=== PATIENT | male | born 1945 | race Caucasian/White ===

== ENCOUNTER 2020-08-23 16:52 | Inpatient (IN) | payer MEDICARE, SELFPAY ==
[2020-08-23] VITALS (27 sets, daily range): BP systolic 115–143; BP diastolic 60–79; PULSE 47–65; RESP 5–18; TEMP 36.4–36.6; O2SAT 93–100; BMI 30.3
--- NOTE | 2020-08-23 16:59 | ED_ITS ---
HPI - Chest Pain General: Chief Complaint: Chest Pain Stated Complaint: STEMI Time Seen by Provider: 08/23/20 16:58 History of Present Illness: HPI narrative: The patient is a 74-year-old male who comes to the ER by helicopter with a STEMI. They called 13 minutes prior to arrival and we notified overhead immediately that a STEMI alert and called Dr. Khanna. Their EKG shows ST elevations in 2 3 and aVF with reciprocal depressions. Ground crew EMS gave 2 nitroglycerin which dropped his pressure and placed him on 100% oxygen. Helicopter crew gave him 50 of fentanyl which reduced his pain to a 0 in the chest and he complains of hip pain. On arrival to the ER he is slightly altered not answering all questions appropriately he has to be asked multiple times. He does complain of shoulder and right hip pain he says he has had his hips replaced. The patient has a history of cardiac disease with multiple stents in the past. He is followed in [place] at [facility] and is not currently a reliable historian. He does have slight ST elevation in 2, 3, and aVF on arrival. The patient thinks symptoms began approximately an hour ago though he has had to be asked 4 times before he would give an answer. MD complaint: chest pain Pertinent past history: coronary artery disease and prior NC Timing of current episode: constant Onset: during rest Pain location: left chest Severity: severe Relieving factors: nothing Associated symptoms: Deny abdominal pain, dyspnea or palpitations Review of Systems General: Reports: 10 or more systems reviewed and unremarkable except in HPI and below Const: Denies: fatigue Eyes: Denies: change in vision, blurry vision or eye redness ENMT: Denies: throat pain, swelling of lips/tongue, ear or mastoid pain or nasal congestion Card: Denies: chest pain, palpitations, irregular heart rhythm, edema, dyspnea on exertion or orthopnea Resp: Denies: dyspnea, productive cough or non-productive cough GI: Denies: abdominal pain, diarrhea or GI cramping : Denies: flank pain, urinary frequency or urinary urgency Musc: Denies: neck pain, back pain, extremity pain, joint pain, joint redness, limited range of motion or muscle weakness Skin/Breast: Denies: rash, pruritus, erythema, skin pain or skin tenderness Neuro: Denies: headache(s), numbness in extremities, weakness in extremities, sensory changes, difficulty walking, dizziness, confusion or Slurred speech present Psych: Denies: anxiety or depression Endo: Denies: polyuria All/Imm: Denies: urticaria, throat swelling or tongue swelling Physical Exam Const: COMMON NORMALS: patient oriented x3 and alert EXAM LIMITATIONS: altered mental status GENERAL APPEARANCE: anxious and ill appearing ORIENTATION/CONSCIOUSNESS: Yes oriented to person, Yes oriented to place and Yes oriented to time OTHER: Has slightly altered mental status. Has to be asked questions multiple times for answers HENMT: COMMON NORMALS: normocephalic, external ears normal and Normal external nose present HEAD & SCALP: normal to inspection and normocephalic NOSE: Normal external nose present EXTERNAL EAR: Yes external ears normal MOUTH: Normal oral and palatal mucosa present THROAT: posterior oropharynx normal Eye: COMMON NORMALS: Equal, round and reactive pupils present and EOMs intact bilaterally GENERAL EYE: appearance normal, both eyes and all related structures PUPIL: Yes Equal, round and reactive pupils present Neck/C-Spine: COMMON NORMALS: full ROM, no lymphadenopathy, no meningeal signs and no JVD GENERAL: Yes normal visual inspection Lymph: LYMPHATIC: no lymphadenopathy noted Chest: COMMONS NORMALS: normal inspection of the chest and normal palpation of entire chest wall Resp: COMMON NORMALS: normal respiratory effort, No retractions, No use of accessory muscles, clear to auscultation bilaterally and percussion normal EFFORT & INSPECTION: Yes able to speak in complete sentences AUSCULTATION: clear to auscultation bilaterally PERCUSSION: percussion normal Cardio: COMMON NORMALS: no JVD, regular rate, regular rhythm, S1 normal heart sound present, S2 normal heart sound present and Peripheral pulses 2+ throughout RATE: regular rate RHYTHM: regular rhythm HEART SOUNDS: S1 normal heart sound present and S2 normal heart sound present PERIPHERAL PULSES: Peripheral pulses 2+ throughout GI: COMMON NORMALS: Normal to inspection, nondistended, normoactive bowel sounds present, Soft to palpation, non-tender and no masses INSPECTION: Yes normal to inspection PALPATION: Yes Soft to palpation : COMMON NORMALS: Yes no CVA tenderness BLADDER/KIDNEY EXAM: Yes no CVA tenderness Back/Pelvis: COMMON NORMALS: no CVA tenderness, thoracic and lumbar spine normal to inspection, no thoracic nor lumbar tenderness and thoraco-lumbar ROM normal Extremity: COMMON NORMALS: normal to inspection, full ROM, capillary refill normal, no joint enlargement and no pedal edema GENERAL: Yes normal exam except as noted Neuro: WEI COMA SCALE: document GCS findings [place] coma scale eye opening: Spontaneous Wei coma scale verbal response: Confused Wei coma scale motor response: Obey commands Wei coma scale total score: 14 COMMON NORMALS: patient oriented x3, CN's II-XII intact bilaterally, moves all ex tremities, no focal motor deficits, no sensory deficits noted and gait normal SENSORIUM/ORIENTATION: Yes alert, Yes oriented to person, Yes oriented to place and Yes oriented to time MENINGEAL SIGNS: Yes no meningeal signs Skin: COMMON NORMALS: no rashes or lesions noted GENERAL SKIN EXAM: no rashes or lesions noted Course Vital Signs: Vital signs: Vital Signs Temperature 97.8 F 08/23/20 17:10 Pulse Rate 65 08/23/20 17:10 Respiratory Rate 18 08/23/20 17:10 Blood Pressure 132/75 08/23/20 17:10 Pulse Oximetry 100 08/23/20 17:10 MDM - Chest Pain MDM Narrative: Medical decision making narrative: Seen by Dr. Khanna in the ED who ordered Plavix, heparin, and saline. The patient was quickly shipped to the [facility] in stable condition. Lab Data: Labs: Lab Results 08/23/20 Range/Units 17:00 WBC 7.9 (4.0-10.0) 10^3/ uL RBC 4.45 (4.1-5.3) 10^6/u L Hgb 13.0 (11.7-16.6) g/dL Hct 40.1 L (42.0-52.0) % MCV 90.1 (80-94) fL MCH 29.2 (28.0-34.0) pg MCHC 32.4 (30.0-36.0) g/dL RDW 11.8 L (12.1-15.1) % Plt Count 236 (130-400) 10^3/c mm MPV 10.3 (7.4-10.4) fL Neut % (Auto) 66.2 % Lymph % (Auto) 23.4 % Harper % (Auto) 7.5 % Eos % (Auto) 2.2 % Baso % (Auto) 0.3 % Neut # (Auto) 5.23 (1.8-7.7) 10^3/u L Lymph # (Auto) 1.8 (0.8-4.8) 10^3/u L Harper # (Auto) 0.6 (0.2-0.9) 10^3/u L Eos # (Auto) 0.2 (0.0-0.8) 10^3/u L Baso # (Auto) 0.0 (0.0-0.1) 10^3/u L Nucleated RBC % (a uto) 0 % Nucleated RBCs # 0.0 /100WBC Discharge Plan Discharge Patient Disposition: Admitted As Inpatient Clinical Impression: ST elevation myocardial infarction (STEMI) Condition: Stable Coding Level of Care Code ED Landscape Drafter for Rolando Fwd Exam Comprehensive
--- NOTE | 2020-08-23 17:00 | XACV_ITS ---
Ht: 185 cm Wt: 104 kg BSA: 2.34 m2 Gender: Male : 1945 Any Known Allergies: No known allergies Exam Priority: Routine Procedure(s): Procedure Description: Diagnostic procedure Procedure Description: PCI procedure Procedure Description: Drug Eluting Coronary Stent Procedure Description: PTCA Procedure Description: Coronary Thrombectomy Procedure Description: Miscellaneous Procedure Description: ACT Procedure Description: Coronary Angiography Diagnostic Cath Status: Emergency Diagnostic Findings * LM has minor luminal irregularities. * Left circumflex artery gives rise to a large OM branch which is free of significant disease. Distal left circumflex artery has a chronic total occlusion with collateral filling. Distal left circumflex artery: Severe 100% stenosis, NUBIA: 0 flow. * pLAD to mLAD: Moderate 60% stenosis, NUBIA: 3 flow. * Proximal Right Coronary Artery to mRCA: Severe 100% stenosis, NUBIA: 0 flow. * Coronary angiography shows right dominance. PCI Status: Emergency PCI Indication: STEMI - Immediate PCI for STEMI Interventional Findings * Procedure detail: We engaged RCA using JR4 guide catheter. IV heparin was used to maintain an ACT above 250 seconds. A 0.014 run-through guidewire was used to cross the proximal to mid RCA stenosis. We predilated the stenosis with 2.5 x 8 mm semicompliant balloon. This was followed by manual aspiration thrombectomy. We then proceeded with placement of 3.5 x 22 mm resolute Evaristo drug-eluting stent. To the stent there was an area of haziness that looked suspicious for residual thrombus. We covered that with a 3.5 x 12 mm resolute Reform drug-eluting stent.. At this time final angiogram was performed that showed excellent stent expansion, no residual stenosis and NUBIA-3 flow. Guidewire and guide catheter were removed. We briefly attempted to cross the PERSONAL LINES INSURANCE AGENT of left circumflex artery after engaging the left main artery with a XB 3.5 guide catheter, however the wire could not cross the occluded segment. As it was a distal vessel and had good collaterals, we aborted further attempts at revascularization of this vessel. Angio-Seal was used to close right common femoral artery access site. Patient left the Document Control Assistant in a stable condition. * Proximal Right Coronary Artery to mRCA: 100% stenosis treated with AB TREK 2.50X8 RX BALLOON, MDT R EVARISTO 3.5X22 JOSE, and MDT R EVARISTO 3.5X12 JOSE. 0% residual stenosis, NUBIA: 3 flow. Conclusions 1. Thrombotic occlusion of proximal to mid 2. RCA (culprit vessel for STEMI). 3. Moderate proximal LAD stenosis. 4. 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 5. Proximal Right Coronary Artery to mRCA was treated with Balloon and two Drug Eluting Stent. Recommendations * Admit to CSU. * Aspirin and Plavix for atleast 1 year. * High intensity statin therapy. * Will recommend outpatient stress test to rule out ischemia in the LAD territory. If abnormal, should be revascularized. * Order echocardiogram. * Outpatient cardiology follow up. Interventional RX Recommendation: PCI w/o planned CABG Diagnostic RX Recommendation: PCI w/o planned CABG Anticoagulation: Heparin Pressures Phase:Rest AO : 147 / 73 ( 114 ) @ 12:22:00 PM 149 / 70 ( 102 ) @ 12:25:00 PM 102 / 59 ( 77 ) @ 12:40:00 PM 110 / 62 ( 80 ) @ 12:44:00 PM 98 / 65 ( 78 ) @ 12:49:00 PM 118 / 78 ( 98 ) @ 12:57:00 PM Clinical Evaluation EBL: 5mL-10mL Procedural Details Procedure Consent Obtained. Pre-Procedure Time Out. Identified patient by full name and date of as verbalized by the patient/guarantor. Does the consent match the physician's order: N/A Emergent. Accurate & Complete Informed Consent: N/A Emergent. Inpatient/Outpatient History & Physical on Chart: N/A Emergent. If H&P is completed, is and addenduem needed: N/A Emergent; If yes, is the addendum complete: N/A. Visualize and Verify Site with Patient/Guarantor: N/A. Relevant Radiology Images available: N/A. Pre-op teaching completed and patient verbalized understanding. The risks, benefits, and alternatives of sedation and/or procedure were discussed by physician. The patient agrees to continue. Procedure started. Document Control Assistant Indications: ACS <= 24 hours. Chest Pain Symptom Assessment: Typical Angina Symptoms. Cardiovascular Instability: No. Correct patient, site and procedure confirmed by cath team. Baseline sample Acquired. HR: 138 BPM. Physician arrived. Equipment: 6F - Femoral. Cardiac Cath Pack. ACIST Manifold Kit Model BT 2000. Heparinized Saline (2 units/mL), 1000 mL bag. Kit, Micropuncture. Physician scrubbed in. Immediate Pre-Procedure Time Out. Correct Patient: Yes; Correct Procedure: Yes; Correct Site: Yes; Correct Patient Position: Yes; Correct Supplies: Yes; Dried Flammable Prep: Yes; Blood Products Available: N/A;. AP pads applied to patient. Lidocaine 1% infiltrated to the right groin. PERRLA. Strong, equal hand water supply engineer bilaterally. Lungs clear x 5 lobes. IV Site on Arrival: 18 gauge in the right forearm. IV Fluids: 0.9% NaCl at KVO. 0 mL infused prior to stores laborer. Oxygen started at 2liters/min via nasal canula. bilateral groins was prepped with chloroprep then draped in the usual sterile fashion. Arterial access obtained with micropuncture set. A 5 british JL4 catheter in over wire. Catheter out. Inventory is CRD 6FR JR 4 GUIDE 100cm. Inventory is CRD 6 FR XB 3.5 GUIDE. 6 british JR 4 guide catheter was inserted over the wire. Runthrough guidewire was advanced through the guide catheter to lesion in the prox RCA. Inflation number : 1 A AB TREK 2.50X8 RX BALLOON was prepped and advanced across the Prox RCA , then inflated to 12 YASHIRA for 0:19 seconds. Inflation number: 2 The AB TREK 2.50X8 RX BALLOON was reinflated across the Prox RCA, to 12 YASHIRA for 0:18 seconds. Balloon out. Pronto V4 extraction catheter inserted. Thrombectomy performed. Pronto catheter removed. Pronto V4 extraction catheter inserted. Pronto catheter removed. Inflation number: 3 The AB TREK 2.50X8 RX BALLOON was reinflated across the Prox RCA, to 12 YASHIRA for 0:06 seconds. Inflation number: 4 The AB TREK 2.50X8 RX BALLOON was reinflated across the Prox RCA, to 12 YASHIRA for 0:08 seconds. Inflation number: 5 The AB TREK 2.50X8 RX BALLOON was reinflated across the Prox RCA, to 12 YASHIRA for 0:12 seconds. Balloon out. Inflation Number : 6 A MDT R EVARISTO 3.5X22 JOSE -Lot Number# [id number] exp date 06/03/2021 was prepped and advanced across the Prox RCA. The stent was deployed at 12 YASHIRA for 0:29 seconds. Stent balloon out over wire. Inflation Number : 7 A MDT R EVARISTO 3.5X12 JOSE -Lot Number# [id number] exp date 04/04/2022 was prepped and advanced across the Prox RCA. The stent was deployed at 12 YASHIRA for 0:23 seconds. Stent balloon out over wire. Results checked. Wire out. Guide catheter out. 6 british XB 3.5 guide catheter was inserted over the wire. Runthrough guidewire was advanced through the guide catheter to lesion in the mid Circ. Unable to cross lesion, guidewire removed. Guide catheter out. Hand injection to check sheath placement. A Angio-Seal VIP (St. Oneal) was successful obtaining hemostatsis at the Right Femoral artery insertion site. Lot #[id number]. Post Procedure: Pulses reassessed and unchanged. PERRLA. Strong, equal hand water supply engineer bilaterally. ACT drawn. Results 232 seconds. Therapeutic limits - pre-heparin administration 90-150 seconds and monitoring heparin during a vascular procedure >250 seconds. Physician scrubbed out. No VTE prophylaxis required. Medication's Wasted: Lidocaine 1% = 18 mL. Pressure held at access site. Total IV fluids: 1000 mL. Contrast type used: Visipaque 320 mgI/mL, 500 mL bottle. PCI Indication: STEMI. Complications: none. Estimated blood loss: 5mL-10mL. Procedure completed. Patient transferred by bed to 1st floor. Vital chart was stopped. Access Site Site: Right Femoral artery Sheath Size: 6 Fr Hemostasis Method: Angio-Seal VIP (St. Oneal) Hemostasis Success: Successful Procedure Medications Start: 5:22 PM Stop: 5:22 PM Medication: Zofran (ondansetron) Amount: 4 mg Route: I.V. Start: 5:19 PM Stop: 5:19 PM Medication: Versed Amount: 1 mg Route: I.V. Start: 5:19 PM Stop: 5:19 PM Medication: Fentanyl Amount: 50 mcg Route: I.V. Start: 5:25 PM Stop: 5:25 PM Medication: Heparin Amount: 5000 units Route: I.V. Start: 5:41 PM Stop: 5:41 PM Medication: Versed Amount: 1 mg Route: I.V. Start: 5:41 PM Stop: 5:41 PM Medication: Fentanyl Amount: 50 mcg Route: I.V. Start: 5:47 PM Stop: 5:47 PM Medication: Heparin Amount: 2000 units Route: I.V. Start: 5:51 PM Stop: 5:51 PM Medication: Aggrastat 12.5 mg/250 mL Amount: 52 ml Route: I.V. bolus Start: 5:51 PM Stop: 5:51 PM Medication: Aggrastat 12.5 mg/250 mL Amount: 18.7 ml/hr Route: I.VAgatha szymanski I, the attending physician, have reviewed and verified all procedure medications. Yes, all medications given per verbal order Report Signatures Finalized by Rich Khanna MD on 09/01/2020 05:44 PM
[2020-08-23] MEDS: clopidogrel 300 mg Tablet 600 MG PO (17:04)
--- NOTE | 2020-08-23 17:04 | ECG_ITS ---
[facility] Test Date: 2020-08-23 Pat Name: Juan Novak Department: Room: Gender: Male School Cook: : 1945 Requested By: Adrien Newberry Order Number: [id number] Odalis MD: Iza Perrin M.D. Measurements Intervals [place] Rate: 56 P: 58 HI: 272 QRS: 55 QRSD: 108 T: 90 QT: 461 QTc: 449 Interpretive Statements SINUS BRADYCARDIA WITH FIRST DEGREE AV BLOCK ST ELEVATION, CONSIDER INFERIOR INJURY ST and T wave changes, consider lateral inshemia No previous ECG available for comparison Electronically Signed On 08-24-2020 10:31:51 CDT by Iza Perrin M.D. [id number]
[2020-08-23] MEDS: heparin 5,000 unit/mL INJ 1 mL 4000 UNIT IVP (17:07)
--- NOTE | 2020-08-23 17:09 | PM.HP ---
Providers/Chief Complaint Admitting Physician: Rich Khanna MD Chief Complaint: STEMI History of Present Illness Juan Novak is a 74 year old male was was brought by EMS to the emergency room with severe, substernal chest pain. Patient was at [facility] when he started having acute severe chest pain, radiating to the left arm. Pain started about an hour before his arrival to the ER. EMS was called and was emergently brought to ER. His initial EKG shows ST elevations in inferior leads with reciprocal changes in the lateral leads. clinical laboratory technologist was emergently activated and angiogram showed total thrombotic occlusion of the proximal RCA. He also had BOAT PAINTER of the distal LCx and moderate disease of the LAD. He underwent successful revascularization of RCA with JOSE x 2. Of note, patient's tells that patient had a stroke in March of last year and has difficulty with word finding since. Review of Systems Narrative: Patient is hard of hearing CONSTITUTIONAL: No fever chills weight loss or gain or night sweats. [] HEENT: Normocephalic, atraumatic.[] RESPIRATORY: No cough, sputum, hemoptysis or wheezing.[] CARDIOVASCULAR: Has chest pain, no PND, orthopnea, lower extremity edema, presyncope or syncope. [] GI: no nausea vomiting diarrhea. [] FARMWORKER POULTRY: No numbness, tingling, weakness or loss of function in any part of the body. [] MUSCULOSKELETAL: No knee or joint pain or rashes. [] Medications/Allergies Home Medications Medication Instructions Recorded Confirmed Last Taken Type baclofen 10 mg PO DAILY 08/23/20 08/23/20 08/23/20 History calcium citrate malate-vit D3 1 tab PO DAILY 08/23/20 08/23/20 08/23/20 History cetirizine 10 mg PO DAILY 08/23/20 08/23/20 08/23/20 History clopidogrel 75 mg PO DAILY 08/23/20 08/23/20 08/23/20 History coenzyme Q10 [Co Q-10] 200 mg PO DAILY 08/23/20 08/23/20 08/23/20 History doxazosin 2 mg PO DAILY 08/23/20 08/23/20 08/23/20 History hydrochlorothiazide 12.5 mg PO DAILY 08/23/20 08/23/20 08/23/20 History hydrocodone-acetaminophen 1 tab PO Q4H PRN 08/23/20 08/23/20 08/23/20 08:00 History losartan 100 mg PO DAILY 08/23/20 08/23/20 08/23/20 History metronidazole 1 applic TOPICAL DAILY 08/23/20 08/23/20 08/23/20 History multivitamin 1 tab PO DAILY 08/23/20 08/23/20 08/23/20 History nebivolol 5 mg PO DAILY 08/23/20 08/23/20 08/23/20 History nitroglycerin [Nitrostat] 0.4 mg SUBLINGUAL Q5M PRN 08/23/20 08/23/20 08/23/20 History omeprazole 20 mg PO DAILY 08/23/20 08/23/20 08/23/20 History peg 400-propylene glycol [Systane 1 drp OPHTHALMIC (EYE) Q2H 08/23/20 08/23/20 Unknown History (propylene glycol)] polyethylene glycol 3350 [Miralax] 17 g PO DAILY 08/23/20 08/23/20 08/23/20 History triamcinolone acetonide 1 applic TOPICAL DAILY 08/23/20 08/23/20 Unknown History Allergies Allergy/AdvReac Type Severity Reaction Status Date / Time No Known Allergies Allergy Verified 08/23/20 17:01 PFSH Acute PFSH: Medical History Coronary artery disease Hypertension Pre-diabetes Stroke Surgical History History of cholecystectomy History of total hip replacement Family History Other Hypertension Social History Smoking and tobacco status: never smoked Marital status: Vitals/I&O/Wt Last Vital Signs Temp 97.8 F 08/23/20 17:01 Pulse 60 08/23/20 17:01 Resp 18 08/23/20 17:01 BP 132/75 08/23/20 17:01 Pulse Ox 99 08/23/20 17:01 Weight last 48 hrs Weight 230 lb Physical Exam Narrative: EXAM NARRATIVE: GENERAL: Patient is alert, awake and oriented x3. [] NECK: No jugular vein distension. [] HEENT: No cyanosis. No icterus. No pallor. [] HEART: Regular S1 and S2. No murmur, rub or gallop. [] LUNGS: Clear to auscultate bilaterally. [] ABDOMEN: Soft, nontender and nondistended. Positive bowel sounds. No guarding, rebound or tenderness. [] CENTRAL NERVOUS SYSTEM: Grossly nonfocal. [] EXTREMITIES: Lower extremities with no edema bilaterally. Pulses palpable in the lower extremities, both dorsalis pedis and posterior tibial. [] Data : 08/23/20 17:00 08/23/20 17:00 A&P Assessment and plan (1) ST elevation myocardial infarction (STEMI): Status: Acute (2) Pre-diabetes: Status: Acute (3) Coronary artery disease: Status: Acute (4) Hypertension: Status: Acute Patient had presented with Acute ST elevation NE with proximal RCA total thrombotic occlusion. He is s/p successful revascularization with JOSE x 2. Admit to CSU Aggrastat gtt for 6 hours Aspirin and Plavix for atleast 1 year High intensity statin therapy Will hold beta blockers as patient has significant bradycardia.Will introduce once heart rates are improved. Will initiate lisinopril 5mg daily Order echocardiogram and CXR Attestations Medical Necessity Statement*: Care expected to cross 2 midnights. Patient is s/p successful revascularization after an acute inferior wall ST elevation NE Coding Level of Care Code Acute Bowling Alley Refinisher for Rolando Petty Diagnoses ST elevation myocardial infarction (STEMI) I21.3 Pre-diabetes R73.03 Coronary artery disease I25.10 Hypertension I10
[2020-08-23 17:15] LABS: Basophils % 0.3 %; Eosinophils # 0.2 10^3/uL (0.0-0.8); Eosinophils % 2.2 %; Hematocrit 40.1 % (42.0-52.0); Lymphocytes # 1.8 10^3/uL (0.8-4.8); Lymphocytes % 23.4 %; Mean Corpuscular HGB Conc 32.4 g/dL (30.0-36.0); Mean Corpuscular Hemoglobin 29.2 pg (28.0-34.0); Mean Corpuscular Volume 90.1 fL (80-94); Mean Platelet Volume 10.3 fL (7.4-10.4); Monocytes # 0.6 10^3/uL (0.2-0.9); Monocytes % 7.5 %; Neutrophils # 5.23 10^3/uL (1.8-7.7); Neutrophils % 66.2 %; Nucleated Red Blood Cells % 0 %; Platelet Count 236 10^3/cmm (130-400); Red Blood Count 4.45 10^6/uL (4.1-5.3); Red Cell Distribution Width 11.8 % (12.1-15.1); White Blood Count 7.9 10^3/uL (4.0-10.0)
[2020-08-23 17:21] LABS: INR 1.15 (0.8-1.2)
[2020-08-23 17:22] LABS: Partial Thromboplastin Time 24.7 SECONDS (23.9-36.7)
[2020-08-23 17:24] LABS: D Dimer 0.41 ug/mIFEU (0-0.59)
[2020-08-23 17:27] LABS: Troponin(5th) Baseline 19 ng/L (0-15)
[2020-08-23 17:38] LABS: Alanine Aminotransferase 10 U/L (0-41); Albumin Level 4.1 g/dL (3.5-5.2); Alkaline Phosphatase 90 IU/L (40-130); Aspartate Amino Transferase 14 U/L (0-40); Blood Urea Nitrogen 11 mg/dL (8-23); Carbon Dioxide 24 mmol/L (22-29); Chloride 99 mmol/L (98-107); Creatinine Clr Calc Pharmacy 99.6338; Globulin 2.4 g/dL (1.3-4.6); Glucose 196 mg/dL (65-115); NT Pro B Type Natriuretic Pept 1311 pg/mL (0-450); Osmolality Calculated 287 mOsm/kg (285-295); Sodium 136 mmol/L (136-145); Total Bilirubin 0.5 mg/dL (0.15-1.2); Total Protein 6.5 g/dL (6.6-8.7)
--- NOTE | 2020-08-23 18:39 | XRR_ITS ---
PROCEDURE INFORMATION: Exam: XR Chest Exam date and time: 08/23/2020 6:56 PM Age: 74 years old Clinical indication: Other: Post mi TECHNIQUE: Imaging protocol: XR of the chest. Views: 1 view. COMPARISON: No relevant prior studies available. FINDINGS: Lungs: No consolidation. Pleural spaces: Small left pleural effusion. No pneumothorax. Heart/Mediastinum: Unremarkable. No cardiomegaly. Vasculature: Senescent changes of the aorta. Bones/joints: No acute osseous abnormality. Osteopenia and degenerative changes. XR/XR chest 1V portable [id number] IMPRESSION: 1. Small left pleural effusion. 2. Additional findings, as above.
--- NOTE | 2020-08-23 19:02 | PC.NURSE ---
Report received from BEAU Rodrigues. Patient received from environmental laboratory technician s/p [facility] with PCI via right femoral artery. NO sheath in place. Removed in environmental laboratory technician with angioseal placed. Right groin is free from bleeding and hematoma formation. Patient denies pain at this time. Aggrastat at 18.7ml/hr to be kept running for 6 hours. Will discontinue at 08/24/20. Spouse to remain at bedside with permission from Dr Khanna.
--- NOTE | 2020-08-23 20:43 | PC.NURSE ---
Patient requesting to have home dose hydrocodone/apap 7.5mg-325mg. Patient reports having chronic back pain from 2 previous surgeries. Spoke with Dr Perrin and received telephone order to start the hydrocodone/apap at 7.5-325 PO Q4h as needed for pain. RBVO
[2020-08-23] MEDS: sodium chloride 0.9% 1,000 ML 75 ML IV (20:56)
[2020-08-23] MEDS: atorvastatin 40 mg Tablet PO (20:56)
[2020-08-23] MEDS: alum-mag-hydroxide-sime 30 mL UDC PO (20:56)
--- NOTE | 2020-08-23 22:17 | PC.NURSE ---
Patient denies pain. Right groin dressing remain c,d,i. No s/s of bleeding or hematoma formation observed.
[2020-08-23] MEDS: HYDROcodone-acetaminophen 7.5-325 mg Tablet 1 TAB PO (22:53)
--- NOTE | 2020-08-23 22:55 | PC.NURSE ---
Right groin dressing remains C,D,I. NO s/s of bleeding or hematoma formation observed. Patient c/o chronic pain to back. Provided pain medication as ordered.
--- NOTE | 2020-08-23 23:57 | PC.NURSE ---
Aggrastat stopped at this time per Dr Khanna.
[2020-08-24] VITALS (15 sets, daily range): BP systolic 104–129; BP diastolic 55–72; PULSE 47–56; RESP 10–20; TEMP 36.4–36.8; O2SAT 90–96
[2020-08-24 00:09] LABS: Troponin 5 2HR 2471 ng/L (0-15); Troponin 5 2HR Delta 2452 ABS# (0-10)
[2020-08-24 01:31] LABS: Basophils % 0.3 %; Eosinophils # 0.2 10^3/uL (0.0-0.8); Eosinophils % 2.1 %; Hematocrit 37.1 % (42.0-52.0); Lymphocytes % 25.8 %; Mean Corpuscular HGB Conc 32.3 g/dL (30.0-36.0); Mean Corpuscular Hemoglobin 29.2 pg (28.0-34.0); Mean Corpuscular Volume 90.3 fL (80-94); Mean Platelet Volume 10.6 fL (7.4-10.4); Monocytes # 0.6 10^3/uL (0.2-0.9); Monocytes % 7.7 %; Nucleated Red Blood Cells % 0 %; Platelet Count 224 10^3/cmm (130-400); Red Blood Count 4.11 10^6/uL (4.1-5.3); Red Cell Distribution Width 11.9 % (12.1-15.1); White Blood Count 7.8 10^3/uL (4.0-10.0)
[2020-08-24 01:46] LABS: Anion Gap 12.4 (5-19); Blood Urea Nitrogen 8 mg/dL (8-23); Calcium 8.2 mg/dL (8.5-10.5); Carbon Dioxide 24 mmol/L (22-29); Chloride 104 mmol/L (98-107); Glucose 136 mg/dL (65-115); Osmolality Calculated 284 mOsm/kg (285-295); Potassium 3.4 mmol/L (3.5-5.1); Sodium 137 mmol/L (136-145)
[2020-08-24 01:54] LABS: Troponin 5 6HR 5419 ng/L (0-15)
--- NOTE | 2020-08-24 05:59 | PC.NURSE ---
Fluids discontinued at this time as per Dr Khanna instuctions.
[2020-08-24] MEDS: alum-mag-hydroxide-sime 30 mL UDC PO ×2 (06:00→20:04)
[2020-08-24] MEDS: aspirin 81 mg EC Tablet PO (08:13)
[2020-08-24] MEDS: atorvastatin 40 mg Tablet PO (08:13)
[2020-08-24] MEDS: clopidogrel 75 mg Tablet PO (08:14)
--- NOTE | 2020-08-24 09:15 | PC.NURSE ---
patient assisted with walking in stark independent with walker 225 ft no sob or chest pain noted
--- NOTE | 2020-08-24 09:16 | USCV_ITS ---
Juan Novak Age: 75 Gender: M : 1945 Exam Date: 08/24/2020 15:11 Ordering Phys: Rich Khanna M.D ([email or web address]) Technologist: Patsy Monroe Exam Location: [facility] – [place] Indication: Post STEMI BP: 116 / 63 HR: 54 Rhythm: Sinus Technical Quality: Adequate MEASUREMENTS (Male / Female) Normal Values 2D ECHO LV Diastolic Diameter PLAX 4.6 cm 4.2 - 5.9 / 3.9 - 5.3 cm LV Systolic Diameter PLAX 3.2 cm LV Chamber Size 4.2 cm IVS Diastolic Thickness 2.1 cm 0.6 - 1.0 / 0.6 - 0.9 cm IVS Systolic Thickness 2.1 cm LVPW Diastolic Thickness 1.2 cm 0.6 - 1.0 / 0.6 - 0.9 cm LVPW Systolic Thickness 1.7 cm RV Chamber Size 3.0 cm LVOT Diameter 2.0 cm LV Ejection Fraction 2D Teich 59.4 % LV Ejection Fraction MOD 2C 48.9 % LV Ejection Fraction 2C AL 48.4 % LA Diameter 4.5 cm LA Width 4.5 cm LA Height 5.0 cm RA Width 3.4 cm RA Height 5.2 cm Aorta at Sinotubular Diameter 2.8 cm M-MODE LV Diastolic Diameter MM 6.8 cm 4.2 - 5.9 / 3.9 - 5.3 cm LV Systolic Diameter MM 4.8 cm LV Ejection Fraction MM Teich 56.0 % IVS Diastolic Thickness MM 1.2 cm 0.6 - 1.0 / 0.6 - 0.9 cm IVS Systolic Thickness MM 1.6 cm LVPW Diastolic Thickness MM 1.8 cm 0.6 - 1.0 / 0.6 - 0.9 cm LVPW Systolic Thickness MM 1.5 cm RV Diastolic Diameter MM 1.5 cm Aortic Annulus Diameter 3.9 cm LA Ao Ratio MM 1.3 MV E Point Septal Separation 1.0 cm DOPPLER AV Peak Velocity 126.0 cm/s LVOT Peak Velocity 92.0 cm/s AV Area Cont Eq vti 2.2 cm squared AV Area Cont Eq pk 2.4 cm squared MV Area PHT 3.4 cm squared Mitral E to A Ratio 1.5 MV E' Velocity 44.5 cm/s Mitral E to MV E' Ratio 11.7 Mitral E to LV E' Lateral Ratio 8.5 Mitral E to LV E' Septal Ratio 19.4 TV Peak E Velocity 50.0 cm/s PV Peak Velocity 53.0 cm/s RV Acceleration Time 0.1 s RV Ejection Time 0.3 s RV AcT/ET 0.4 FINDINGS Left Ventricle Normal left ventricular size. LV systolic function is normal with EF of 50-55%. Mild hypokinesis of the inferior wall. Grade 2 diastolic dysfunction Right Ventricle The right ventricle is normal in size and function. Right Atrium The right atrium is normal in size. Left Atrium The left atrium is enlarged Mitral Valve Structurally normal mitral valve without significant stenosis or prolapse. There is moderate mitral regurgitation. Aortic Valve Structurally normal aortic valve without significant sclerosis or stenosis. There is mild aortic regurgitation. Tricuspid Valve Structurally normal tricuspid valve without significant stenosis or regurgitation. Insufficient TR jet to calculate RVSP Pulmonic Valve Structurally normal pulmonic valve without significant stenosis. There is mild pulmonic regurgitation. Pericardium Normal pericardium without effusion. Aorta Normal ascending aorta dimension. CONCLUSIONS LV systolic function is normal with EF of 50-55% Grade 2 diastolic dysfunction Left atrial enlargement Moderate mitral regurgitation Mild aortic regurgitation Mild pulmonic regurgitation No comparison studies are available Rich Khanna MD (Electronically Signed) Final Date: 24 August 2020 16:24 S
[2020-08-24] MEDS: lisinopril 5 mg Tablet PO (09:38)
[2020-08-24 10:16] LABS: Basophils % 0.3 %; Eosinophils # 0.2 10^3/uL (0.0-0.8); Eosinophils % 2.2 %; Hematocrit 37.3 % (42.0-52.0); Lymphocytes # 1.5 10^3/uL (0.8-4.8); Lymphocytes % 18.8 %; Mean Corpuscular HGB Conc 32.2 g/dL (30.0-36.0); Mean Corpuscular Hemoglobin 29.4 pg (28.0-34.0); Mean Corpuscular Volume 91.4 fL (80-94); Mean Platelet Volume 10.4 fL (7.4-10.4); Monocytes # 0.5 10^3/uL (0.2-0.9); Monocytes % 6.8 %; Neutrophils # 5.58 10^3/uL (1.8-7.7); Neutrophils % 71.6 %; Nucleated Red Blood Cells % 0 %; Platelet Count 219 10^3/cmm (130-400); Red Blood Count 4.08 10^6/uL (4.1-5.3); White Blood Count 7.8 10^3/uL (4.0-10.0)
[2020-08-24 10:30] LABS: Anion Gap 11.7 (5-19); Blood Urea Nitrogen 8 mg/dL (8-23); Calcium 8.6 mg/dL (8.5-10.5); Carbon Dioxide 25 mmol/L (22-29); Chloride 104 mmol/L (98-107); Glucose 169 mg/dL (65-115); Osmolality Calculated 286 mOsm/kg (285-295); Potassium 3.7 mmol/L (3.5-5.1); Sodium 137 mmol/L (136-145)
--- NOTE | 2020-08-24 12:51 | P.PN_ITS ---
Subjective Subjective: Interval history: Patient is doing well. Denies any complaints of chest pain, shortness of breath or palpitations. Vitals/I&O/Wt Last Vital Signs Temp 97.6 F 08/24/20 10:44 Pulse 50 L 08/24/20 10:44 Resp 19 H 08/24/20 10:44 BP 104/55 08/24/20 10:44 Pulse Ox 94 08/24/20 10:44 08/23/20 08/24/20 08/24/20 22:59 06:59 14:59 Intake Total 240 / 240 1215 / 1215 Output Total 600 / 600 Balance -360 / -360 1215 / 1215 Weight last 48 hrs Weight 230 lb Physical Exam Narrative: EXAM NARRATIVE: GENERAL: Patient is alert, awake and oriented x3. [] NECK: No jugular vein distension. [] HEENT: No cyanosis. No icterus. No pallor. [] HEART: Regular S1 and S2. No murmur, rub or gallop. [] LUNGS: Clear to auscultate bilaterally. [] ABDOMEN: Soft, nontender and nondistended. Positive bowel sounds. No guarding, rebound or tenderness. [] CENTRAL NERVOUS SYSTEM: Grossly nonfocal. [] EXTREMITIES: Lower extremities with no edema bilaterally. Pulses palpable in the lower extremities, both dorsalis pedis and posterior tibial. [] Data : 08/24/20 09:55 08/24/20 09:55 A&P Assessment and plan (1) ST elevation myocardial infarction (STEMI): Status: Acute (2) Pre-diabetes: Status: Acute (3) Coronary artery disease: Status: Acute (4) Hypertension: Status: Acute Patient had presented with Acute ST elevation VA with proximal RCA total thrombotic occlusion. He is s/p successful revascularization with JOSE x 2. Admit to CSU Aspirin and Plavix for atleast 1 year High intensity statin therapy Will hold beta blockers as patient has significant bradycardia.Will introduce once heart rates are improved. Lisinopril ECHO shows overall preserved EF. Access site is normal with no hematoma noted. if pt stays stable, discharge plan for tomorrow Attestations Medical Necessity Statement*: Care expected to cross 2 midnights. Patient STEMI and is s/p successful revascularzation with JOSE X 2 Coding Level of Care Code Acute Graduate Teaching Assistant for Rolando Petty Diagnoses ST elevation myocardial infarction (STEMI) I21.3 Pre-diabetes R73.03 Coronary artery disease I25.10 Hypertension I10
--- NOTE | 2020-08-24 13:52 | PC.NURSE ---
Spoke with Dr marte with patients request for allergy medications telephone instructions to start cetirizine 5 mg po x1
[2020-08-24] MEDS: cetirizine 10 mg Tablet 5 MG PO (14:31)
[2020-08-24] MEDS: HYDROcodone-acetaminophen 7.5-325 mg Tablet 1 TAB PO (20:04)
[2020-08-25] VITALS (7 sets, daily range): BP systolic 108–155; BP diastolic 53–80; PULSE 52–64; RESP 12–20; TEMP 36.3–36.8; O2SAT 94–99
[2020-08-25] MEDS: lisinopril 5 mg Tablet PO (08:51)
[2020-08-25] MEDS: clopidogrel 75 mg Tablet PO (08:51)
[2020-08-25] MEDS: atorvastatin 40 mg Tablet PO (08:51)
[2020-08-25] MEDS: aspirin 81 mg EC Tablet PO (08:51)
--- NOTE | 2020-08-25 13:59 | PM.DCS ---
Discharge Providers Date of Admission: 08/23/20 18:30 Date of Discharge: August 25, 2020 Attending Provider at Admission: Rich Khanna M.D Attending Provider at Discharge: Rich Khanna M.D Primary Care Provider: Bhaskar Thibodeaux Diagnoses at Discharge Discharge Diagnosis (1) ST elevation myocardial infarction (STEMI): Status: Acute (2) Pre-diabetes: Status: Acute (3) Coronary artery disease: Status: Acute (4) Hypertension: Status: Acute Reason for Visit Reason for Visit: STEMI Hospital Course Hospital Course 75-year-old male past medical history significant for coronary artery disease, hypertension hyperlipidemia was taken to the [employer] [facility]ist for ST elevation [place] he was noted to have thrombotically occluded RCA which were treated with 2 drug-eluting stents. Postop course remained uncomplicated. His medicine were optimized. Right groin wound looks good no hematoma no bruising. He has been discussed regarding necessity of taking dual antiplatelet therapy. He is walking around without any difficulty or chest pain. We will discharge him home. Left ventricular ejection fraction preserved and normal by echocardiogram during this admission. Physical Exam Narrative: EXAM NARRATIVE: GENERAL: Patient is alert, awake and oriented x3. NECK: No jugular vein distension. HEENT: No cyanosis. No icterus. No pallor. HEART: Regular S1 and S2. No murmur, rub or gallop. LUNGS: Clear to auscultate bilaterally. ABDOMEN: Soft, nontender and nondistended. Positive bowel sounds. No guarding, rebound or tenderness. CENTRAL NERVOUS SYSTEM: Grossly nonfocal. EXTREMITIES: Lower extremities without edema bilaterally. Discharge Data Data Completed and Pending: Completed Studies During Hospitalization Category Date Time Status XR chest 1V isabel ble [id number] Routine Exams 08/23/20 18:39 Completed CV echo complete* [id number] Routine Ultrasound 08/24/20 09:16 Completed Pending at discharge Category Date Time Status RISK ASSESSMENT ANALYST request for service Stat Exams 08/23/20 17:00 Taken Vitals: Last Vital Signs Temp 98.0 F 08/25/20 12:00 Pulse 64 08/25/20 12:00 Resp 20 H 08/25/20 12:00 BP 155/80 08/25/20 12:00 Pulse Ox 99 08/25/20 12:00 Discharge Plan Discharge Patient Disposition: Home Condition: Stable Prescriptions: New aspirin 81 mg Tablet,Delayed Release (Dr/Ec) 81 mg PO DAILY Qty: 90 RF: 4 Protonix 40 mg tablet,delayed release (DR/EC) 40 mg PO DAILY 56 Days Qty: 60 RF: 4 Continued multivitamin Tablet 1 tab PO DAILY RF: 0 cetirizine 10 mg Tablet 10 mg PO DAILY RF: 0 hydrocodone-acetaminophen 7.5-325 mg Tablet 1 tab PO Q4H PRN (Reason: Moderate Pain (Scale Score 5-6)) RF: 0 metronidazole 0.75 % Cream 1 applic TOPICAL DAILY RF: 0 hydrochlorothiazide 12.5 mg Capsule 12.5 mg PO DAILY RF: 0 Nitrostat 0.4 mg Tablet, Sublingual 0.4 mg SUBLINGUAL Q5M PRN (Reason: Chest Pain) RF: 0 Miralax 17 gram/dose Powder 17 g PO DAILY RF: 0 losartan 100 mg Tablet 100 mg PO DAILY RF: 0 doxazosin 2 mg Tablet 2 mg PO DAILY RF: 0 Co Q-10 100 mg Capsule 200 mg PO DAILY RF: 0 calcium citrate malate-vit D3 250 mg-2.5 mcg (100 unit) Tablet 1 tab PO DAILY RF: 0 nebivolol 5 mg Tablet 5 mg PO DAILY RF: 0 triamcinolone acetonide 0.1 % Cream 1 applic TOPICAL DAILY RF: 0 Systane (propylene glycol) 0.4-0.3 % Drops 1 drp OPHTHALMIC (EYE) Q2H RF: 0 baclofen 10 mg tablet 10 mg PO DAILY RF: 0 clopidogrel 75 mg Tablet 75 mg PO DAILY Qty: 90 RF: 4 Discontinued omeprazole 20 mg Capsule,Delayed Release(Dr/Ec) 20 mg PO DAILY RF: 0 Discharge Orders: Discharge Order (Routine); Ordered 08/25/20 Ordered By: Fay Solomon Referrals: Bhaskar Thibodeaux [Primary Care Provider] - 4-7 days (Dr Thibodeaux at [facility] is completely booked with appointments this week. His nurse is goint to work you in. She will be calling you with your followup appointment. If you don't hear from them by Tomorrow afternoon, please give them a call. Thank you) Rich Khanna M.D [Physician] - 10/01/20 1:15 pm (You have a cardiology followup with Dr. Khanna at [facility] on October 01 at 1:15pm ) Lilly Barajas FNP [Nurse Practitioner] - 09/01/20 2:30 pm (You have a post procedure followup with MELVIN Avendaño at [facility] on September 01 at 2:30 ) Discharge Diet: Cardiac Discharge Activity: Increase activity as tolerated Patient Instructions: Aspirin (By mouth), Pantoprazole (By mouth), Myocardial Infarction (DC), Left Heart Catheterization (DC), Chest Pain Stoplight Activity Restrictions/Additional Instructions: Follow-up with Lilly Barajas in 7 days, follow-up with Dr. Khanna in 6 to 8 weeks. Continue clopidogrel and aspirin without interruption for at least 1 year after that we will reassess. Discharge Attestations Time Spent in Discharge Care*: less than 30 min Specific Discharge Activities: educating patient and educating and/or supporting family/caregiver Quality Metrics Clinical Quality Measures During this hospital stay, did patient experience: AMI Clinical Trial Participant: No Contraindication to aspirin (AMI): Aspirin given Contraindication to statin: Statin prescribed Coding Level of Care Code Acute Chg FW DC note Diagnoses ST elevation myocardial infarction (STEMI) I21.3 Pre-diabetes R73.03 Coronary artery disease I25.10 Hypertension I10
--- NOTE | 2020-08-25 15:46 | DCPLANNER ---
I called Karen Caicedo to make his followup appointment with Dr Thibodeaux. All appointments were booked up, but when I shared wht /he was admitted< the nurse agreed to work him in and will call him to schedule an appointmant.
== END 2020-08-25 15:15 | disposition home or self-care (01) | DRG 247 ==
LOC: ER 17:36 → CCL 18:41 → CSU 18:44
PROVIDERS: Admitting Provider Internal Medicine; Emergency Provider Family Medicine; PCP Family Medicine; Visit Provider Internal Medicine
PROC: 027035Z Dilation of Coronary Artery, One Artery with Two Drug-eluting Intraluminal Devices, Percutaneous Approach (ICD-10-PCS; principal; 2020-08-23 16:30)
PROC: 027035Z Dilation of Coronary Artery, One Artery with Two Drug-eluting Intraluminal Devices, Percutaneous Approach (ICD-10-PCS; 2020-08-23 16:30)
DX: I21.11 ST elevation (STEMI) myocardial infarction involving right coronary artery (principal); I25.10 Atherosclerotic heart disease of native coronary artery without angina pectoris; Z86.73 Personal history of transient ischemic attack (TIA), and cerebral infarction without residual deficits; I10 Essential (primary) hypertension; R73.03 Prediabetes; Z96.649 Presence of unspecified artificial hip joint; E78.5 Hyperlipidemia, unspecified; Z79.891 Long term (current) use of opiate analgesic; Z79.02 Long term (current) use of antithrombotics/antiplatelets
CPT/HCPCS: 36415; 71045; 80048; 80053; 83880; 84484; 85025; 85347; 85378; 85610; 85730; 93005; 93306; 93454; 99285; C1725; C1757; C1760; C1769; C1874; C1887; C1894; C9606; J1644; J2250; J2405; J3010; J3246; J7030; Q9967

== ENCOUNTER → 2020-09-01 15:19 | Outpatient (BNVA) | payer MEDICARE, SELFPAY | PROVIDERS: PCP Family Medicine; Visit Provider Nurse Practitioner Family | DX: I25.10 Atherosclerotic heart disease of native coronary artery without angina pectoris (principal) | CPT/HCPCS: 80048 ==

== ENCOUNTER 2020-11-07 09:17 | Outpatient (CLI) | payer MEDICARE, SELFPAY ==
--- NOTE | 2020-11-07 09:33 | ECG_ITS ---
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 Interpretive Statements NAME OF STUDY: LEXISCAN SESTAMIBI STRESS TEST INDICATION: [Chest Pain; Dyspnea, ] Procedure: At the baseline, the blood pressure was 161/114 mmHg with a heart rate of 52 bpm. The electrocardiogram showed sinus bradycardia, normal axis with normal ST and T's. The Lexiscan was infused over a period of 20 seconds. A total of 0.4 mg of Lexiscan was infused. The stress phase was continued for a total of 5 minutes. Heart rate was at the end of stress phase was 61 bpm and a blood pressure of 187/107 mmHg. The EKG at the peak infusion revealed since normal sinus rhythm with no significant ST-T wave changes. Sestamibi was injected 20 seconds after the Lexiscan infusion. Blood pressure at the end of recovery phase was 186/99 mmHg with a heart rate of 57 bpm. Conclusion: 1. Normal EKG response to Lexiscan infusion 2. No Lexiscan induced chest pain or cardiac arrhythmia. 3. Normal blood pressure and heart rate response. 4. Sestamibi/sestamibi perfusion scan pending; see separate report. Electronically Signed On 12-02-2020 15:32:48 CDT by Rich Khanna M.D. [id number]
--- NOTE | 2020-11-07 09:33 | NMCV_ITS ---
NM taty perf SPECT r/s* [id number] Juan Novak Age: 75 Gender: M : 1945 Exam Date: 11/07/2020 10:41 Ordering Phys: Rich Khanna M.D ([email or web address]) Technologist: GEOVANNA Coronado Exam Location: [facility] Indications: DYSPNEA STRESS TEST [facility] IMAGE PROTOCOL Rest/Stress 1 Lexiscan Day Radiopharmaceutical Dose (mCi) Administration Site Administered by Rest: Tc-99m 10.9 IV GEOVANNA Coronado Sestamibi Stress:Tc-99m 32.4 IV GEOVANNA Correa Sestamibi Rest: 07-Nov-2020 60 Discovery 630 Stress: 07-Nov-2020 30 Discovery 630 0.4mg Lexiscan. Images obtained in supine and prone position. SPECT RESULTS Technical Quality: Excellent Raw Data Analysis: Normal Image Corrections: No attenuation or motion correction applied Summed Stress Score: 25 Summed Rest Score: 27 Summed Difference Score: 1 PERFUSION FINDINGS There is a large in size fixed perfusion defect in the inferior wall. There is also a fixed defect noted in the apical, apical lateral, lateral and anterolateral singleton. Minimal area of reversibility noted in the mid inferior wall which may represent toby-infarct ischemia FUNCTIONAL RESULTS (calculated via Gated SPECT) Stress Image LV EF (%): 40 Stress EDV (mL):160 TID: 0.92 Stress ESV (mL):96 FUNCTIONAL FINDINGS: LV systolic function is modereately reduced. Moderate global hypokinesis is seen IMPRESSIONS 1. Abnormal myocardial perfusion imaging with prior infarct of inferior, apical, anterolateral and lateral singleton noted. Small area of toby-infarct ischemia is noted in the inferior wall. No significant area of ischemia is seen 2. LV systolic function is modereately reduced Rich Khanna MD (Electronically Signed) Final Date: 08 November 2020 19:51 S
[2020-11-07 09:52] VITALS: BMI 26.5
[2020-11-07] MEDS: regadenoson 0.4 Mg/5 ml Syringe IVP (11:14)
[2020-11-07 12:00] VITALS: BP 186/99; PULSE 63
== END 2020-11-07 09:18 | disposition home or self-care (01) ==
LOC: CDL 09:18
PROVIDERS: PCP Family Medicine; Visit Provider Internal Medicine
DX: R06.00 Dyspnea, unspecified (principal); R07.9 Chest pain, unspecified
CPT/HCPCS: 78452; 93017; A9500; J2785

== ENCOUNTER 2021-08-14 12:03 | Outpatient (CLI) | payer MEDICARE, SELFPAY ==
--- NOTE | 2021-08-14 12:25 | USCV_ITS ---
Juan Novak Age: 75 Gender: M : 1945 Exam Date: 08/14/2021 12:43 Ordering Phys: Vicky Zendejas MD ([email or web address]) Technologist: [place]am [place] [facility] [place]ication: dizzy Risk Factors: None Previous Vascular Surgery: Right Brachial BP: / Left Brachial BP: / Right Left Velocity (cm/s) Spectral Plaque Velocity (cm/s) Spectral Plaque Syst/Diast Broadening Syst/Diast Broadening 79.40/ 14.30 Prox CCA 86.20 / 9.30 58.40/ 12.10 Mid CCA 100.20/ 12.40 61.70/ 16.50 Hetro Distal CCA 66.80 / 12.40 56.20/ 12.10 Hetro Prox ICA 67.60 / 13.20 99.20/ 27.60 Mid ICA 65.30 / 13.20 91.50/ 23.20 Distal ICA 66.00 / 17.90 97.00 ECA 73.00 1.25 ICA/CCA 0.67 Antegrade Vertebral Antegrade 56.70/ 12.40 cm/s 48.90/ 14.80 cm/s Bi Subclavian Bi 73.80 155.1 0 FINDINGS Comparison: none available. No significant elevation of systolic or diastolic velocities. Waveforms are normal. Minimal bilateral, intimal thickening with no elevation of velocity. CONCLUSIONS Bilateral ICA stenosis less than 50%. Minimal carotid atherosclerosis. Dr. Juliana Augustine DO (Electronically Signed) Final Date: 14 August 2021 13:26 S
== END 2021-08-14 12:04 | disposition home or self-care (01) ==
PROVIDERS: PCP Family Medicine; Visit Provider Internal Medicine Cardiovascular Disease
DX: I63.9 Cerebral infarction, unspecified (principal); I77.9 Disorder of arteries and arterioles, unspecified; R42 Dizziness and giddiness; I65.23 Occlusion and stenosis of bilateral carotid arteries
CPT/HCPCS: 93880

== ENCOUNTER 2021-08-17 11:14 | Outpatient (CLI) | payer MEDICARE, SELFPAY ==
--- NOTE | 2021-08-17 11:37 | US_ITS ---
WS: [id number] ULTRASOUND SOFT TISSUES RIGHT neck. HISTORY: SUBMANDIBULAR LYMPHADENOPATHY COMPARISON: None available. TECHNIQUE: 2-D and color Doppler imaging is submitted. Ultrasound is directed by the patient in the area of concern near the RIGHT submandibular gland. Ther e is variable echogenicity within the RIGHT submandibular gland. There is a hypoechoic area measuring 9 x 6 x 1.3 cm with no significant increased vascularity. This is along the inferior submandibular g land. There are numerous cervical chain lymph nodes noted lymph nodes are small. There is a hypoechoic lymp h node just above the LEFT clavicle. Loss of the normal fatty arturo but there is normal central vascul arity in the size is not enlarged. Additional LEFT cervical lymph node has an asymmetric thickening of the cortex. Normal fatty arturo. US/US soft tissue head neck [id number] IMPRESSION: 1. Hypoechoic mass adjacent or within the RIGHT submandibular gland. There are also several indeterminate lymph nodes along the LEFT cervical chain and LEFT supraclavicular fossa. 2. Recommend follow-up CT neck with IV contrast for further evaluation of the RIGHT submandibular gland and cervical lymph nodes.
== END 2021-08-17 11:15 | disposition home or self-care (01) ==
LOC: RAD 11:15
PROVIDERS: PCP Family Medicine; Visit Provider Nurse Practitioner
DX: R59.0 Localized enlarged lymph nodes (principal)
CPT/HCPCS: 76536

== ENCOUNTER 2021-09-03 07:40 | Outpatient (CLI) | payer MEDICARE, SELFPAY ==
--- NOTE | 2021-09-03 07:56 | CT_ITS ---
WS: [id number] CT NECK TECHNIQUE: Contrast-enhanced CT of the neck with coronal and sagittal reformatted images. CLINICAL INFORMATION: MASS OF R SUBMANDIBULAR REGION COMPARISON: None. DLP: 271.[address] scans at [facility] use at least one of these dose optimization techniques: automated e xposure control; mA and/or kV adjustment per patient size (includes targeted exams where dose is matc hed to clinical indication); or iterative reconstruction. 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 This can be further evaluated with MRI or CT Mastoid air cells are well aerated. Paranasal sinuses are well aerated. Normal visualized posterior n asopharynx. Normal parapharyngeal fat. Parotid glands are normal. Submandibular glands are normal. A few slightly prominent submandibular and cervical chain lymph nodes within normal limits. No cervical lymphadenopathy. Lung apices are well aerated. Normal thyroid gland. Tiny low-attenuation lesion LEFT thyroid measurin g 3 mm. No evidence of supraglottic or glottic mass. Secretions within the RIGHT vallecula. Normal ep iglottis. Normal piriform sinuses. Normal glottis. Normal subglottic airway. No evidence of supraglot tic or glottic mass. CT/CT neck w con* [id number] IMPRESSION: 1. Salivary glands are normal in appearance. No evidence of submandibular mass to correspond to the ultrasound findings. 2. A few prominent submandibular and cervical chain lymph nodes bilaterally wi thin normal limits less than 10 mm. These are nonspecific but may be reactive. 3. Tiny 3 mm low-attenuation lesion LEFT thyroid likely incidental. 4. Partially visualized large area of encephalomalacia LEFT posterior temporal lobe likely due to prior infarct. This is partially visualized. Recommend furt her evaluation with CT or MRI. 5. Mastoid air cells and paranasal sinuses are well aerated. 6. No evidence of supraglottic or glottic mass. Secretions within the RIGHT va llecula.
[2021-09-03] MEDS: iohexol 350 mg/mL 100 mL Btl IV (09:20)
[2021-09-03 09:32] LABS: Blood Urea Nitrogen 13 mg/dL (8-23)
== END 2021-09-03 07:41 | disposition home or self-care (01) ==
LOC: RAD 07:42
PROVIDERS: PCP Family Medicine; Visit Provider Nurse Practitioner Family
DX: R22.0 Localized swelling, mass and lump, head (principal)
CPT/HCPCS: 70491; 82565; 84520

== ENCOUNTER → 2021-10-13 09:47 | Outpatient (BNVA) | payer MEDICARE, SELFPAY | PROVIDERS: PCP Family Medicine; Visit Provider Internal Medicine Cardiovascular Disease | DX: I25.10 Atherosclerotic heart disease of native coronary artery without angina pectoris (principal); I10 Essential (primary) hypertension; E78.5 Hyperlipidemia, unspecified; Z86.73 Personal history of transient ischemic attack (TIA), and cerebral infarction without residual deficits | CPT/HCPCS: 99214 ==

== ENCOUNTER → 2021-10-19 13:56 | Outpatient (BNVA) | payer MEDICARE, SELFPAY | PROVIDERS: PCP Family Medicine; Visit Provider Internal Medicine Cardiovascular Disease | DX: I63.9 Cerebral infarction, unspecified (principal); I49.3 Ventricular premature depolarization; I49.1 Atrial premature depolarization | CPT/HCPCS: 93270 ==

== ENCOUNTER → 2022-04-13 10:04 | Outpatient (BNVA) | payer MEDICARE, SELFPAY | PROVIDERS: PCP Family Medicine; Visit Provider Nurse Practitioner Family | DX: I25.10 Atherosclerotic heart disease of native coronary artery without angina pectoris (principal); I10 Essential (primary) hypertension | CPT/HCPCS: 99214 ==

== ENCOUNTER → 2022-10-22 09:53 | Outpatient (BNVA) | payer MEDICARE, SELFPAY | PROVIDERS: PCP Family Medicine; Visit Provider Internal Medicine | DX: I25.10 Atherosclerotic heart disease of native coronary artery without angina pectoris (principal); I10 Essential (primary) hypertension; E78.5 Hyperlipidemia, unspecified; R07.9 Chest pain, unspecified; R06.02 Shortness of breath; Z86.73 Personal history of transient ischemic attack (TIA), and cerebral infarction without residual deficits | CPT/HCPCS: 36415; 80048; 83880; 99214 ==

== ENCOUNTER → 2022-10-22 09:53 | Outpatient (BNVA) | payer MEDICARE, SELFPAY | PROVIDERS: PCP Family Medicine; Visit Provider Internal Medicine | DX: I10 Essential (primary) hypertension (principal); I25.10 Atherosclerotic heart disease of native coronary artery without angina pectoris; Z86.73 Personal history of transient ischemic attack (TIA), and cerebral infarction without residual deficits | CPT/HCPCS: 36415; 80048; 83880 ==

== ENCOUNTER 2022-11-05 10:14 | Outpatient (CLI) | payer MEDICARE, SELFPAY ==
[2022-11-05 11:22] LABS: Anion Gap 15.9 (5-19); Blood Urea Nitrogen 13 mg/dL (8-23); Calcium 9.8 mg/dL (8.5-10.5); Carbon Dioxide 28 mmol/L (22-29); Chloride 96 mmol/L (98-107); Glucose 117 mg/dL (65-115); NT Pro B Type Natriuretic Pept 1171 pg/mL (0-450); Osmolality Calculated 281 mOsm/kg (285-295); Potassium 4.9 mmol/L (3.5-5.1); Sodium 135 mmol/L (136-145)
== END 2022-11-05 10:15 | disposition home or self-care (01) ==
PROVIDERS: PCP Family Medicine; Visit Provider Internal Medicine
DX: I25.119 Atherosclerotic heart disease of native coronary artery with unspecified angina pectoris (principal); I10 Essential (primary) hypertension
CPT/HCPCS: 80048; 83880

== ENCOUNTER 2022-11-12 09:49 | Outpatient (CLI) | payer MEDICARE, SELFPAY ==
--- NOTE | 2022-11-12 10:15 | USCV_ITS ---
Scarlet Juan Age: 77 Gender: M : 1945 Exam Date: 11/12/2022 10:42 Ordering Phys: Rich Khanna M.D ([email or web address]) Technologist: ITZ Exam Location: [facility] [place] Indication: CHEST PAIN, SHORTNESS OF BREATH BP: 132 / 80 HR: 48 Rhythm: Sinus Technical Quality: Adequate MEASUREMENTS (Male / Female) Normal Values 2D ECHO LVOT Diameter 2.0 cm LV Ejection Fraction MOD 2C 58.3 % LV Ejection Fraction 2C AL 57.8 % LA Diameter 3.7 cm LA Width 3.5 cm LA Height 4.7 cm RA Width 2.1 cm RA Height 4.6 cm Aorta at Sinotubular Diameter 2.7 cm M-MODE Aortic Annulus Diameter 3.3 cm LA Ao Ratio MM 1.1 MV E Point Septal Separation 0.8 cm DOPPLER AV Peak Velocity 119.0 cm/s LVOT Peak Velocity 103.0 cm/s AV Area Cont Eq vti 2.4 cm squared AV Area Cont Eq pk 2.7 cm squared MV Peak Velocity 95.0 cm/s MV Area PHT 2.2 cm squared Mitral E to A Ratio 0.8 MV E' Velocity 36.0 cm/s Mitral E to MV E' Ratio 6.6 Mitral E to LV E' Lateral Ratio 5.0 Mitral E to LV E' Septal Ratio 9.8 TR Peak Velocity 245.7 cm/s TR Peak Gradient 24.1 mmHg TR Mean Velocity 177.5 cm/s TR Mean Gradient 14.2 mmHg TR Velocity Time Integral 75.4 cm TV Peak E Velocity 53.0 cm/s Right Atrial Pressure 8.0 mmHg Pulmonary Artery Systolic Pressu 32.1 mmHg PV Peak Velocity 98.0 cm/s RV Acceleration Time 0.1 s RV Ejection Time 0.3 s RV AcT/ET 0.5 FINDINGS Left Ventricle Left ventricle is normal in size. LV systolic function is normal with EF 50 to 55%. Grade 1 diastolic dysfunction Right Ventricle The right ventricle is normal in size and function. Right Atrium The right atrium is normal in size. Left Atrium The left atrium is normal in size. Mitral Valve Structurally normal mitral valve. Mild mitral regurgitation Aortic Valve Structurally normal aortic valve. No significant stenosis. Mild aortic regurgitation Tricuspid Valve Trace tricuspid regurgitation. Insufficient TR jet to calculate RVSP Pulmonic Valve Trace pulmonic regurgitation Pericardium Normal pericardium without effusion. Aorta Normal ascending aorta dimension. IVC Not well visualized CONCLUSIONS LV systolic function is normal with EF 50 to 55% Grade 1 diastolic dysfunction Mild mitral regurgitation Mild aortic regurgitation Trace tricuspid regurgitation Trace pulmonic regurgitation Compared to prior echocardiogram from 2019, no significant changes are seen. Rich Khanna MD (Electronically Signed) Final Date: 13 November 2022 10:54 S
== END 2022-11-12 09:50 | disposition home or self-care (01) ==
LOC: RAD 09:53
PROVIDERS: PCP Family Medicine; Visit Provider Internal Medicine
DX: R06.02 Shortness of breath (principal); R07.9 Chest pain, unspecified; I34.0 Nonrheumatic mitral (valve) insufficiency; I35.1 Nonrheumatic aortic (valve) insufficiency
CPT/HCPCS: 36415; 80048; 83880; 93306

== ENCOUNTER 2022-12-07 10:05 | Outpatient (CLI) | payer MEDICARE, SELFPAY ==
[2022-12-07 11:19] LABS: Anion Gap 13.5 (5-19); Blood Urea Nitrogen 14 mg/dL (8-23); Calcium 9.9 mg/dL (8.5-10.5); Carbon Dioxide 28 mmol/L (22-29); Chloride 98 mmol/L (98-107); Glucose 103 mg/dL (65-115); NT Pro B Type Natriuretic Pept 819 pg/mL (0-450); Osmolality Calculated 281 mOsm/kg (285-295); Potassium 4.5 mmol/L (3.5-5.1); Sodium 135 mmol/L (136-145)
== END 2022-12-07 10:06 | disposition home or self-care (01) ==
PROVIDERS: PCP Family Medicine; Visit Provider Internal Medicine
DX: I10 Essential (primary) hypertension (principal); I25.119 Atherosclerotic heart disease of native coronary artery with unspecified angina pectoris
CPT/HCPCS: 36415; 80048; 83880

== ENCOUNTER 2023-02-08 10:31 | Outpatient (CLI) | payer MEDICARE, SELFPAY ==
[2023-02-08 11:37] LABS: Anion Gap 11.8 (5-19); Blood Urea Nitrogen 14 mg/dL (8-23); Calcium 9.4 mg/dL (8.5-10.5); Carbon Dioxide 31 mmol/L (22-29); Chloride 94 mmol/L (98-107); Glucose 122 mg/dL (65-115); NT Pro B Type Natriuretic Pept 845 pg/mL (0-450); Osmolality Calculated 278 mOsm/kg (285-295); Potassium 3.8 mmol/L (3.5-5.1); Sodium 133 mmol/L (136-145)
== END 2023-02-08 10:32 | disposition home or self-care (01) ==
PROVIDERS: PCP Family Medicine; Visit Provider Internal Medicine
DX: I25.119 Atherosclerotic heart disease of native coronary artery with unspecified angina pectoris (principal); I10 Essential (primary) hypertension
CPT/HCPCS: 80048; 83880

== ENCOUNTER → 2023-04-29 10:09 | Outpatient (BNVA) | payer MEDICARE, SELFPAY | PROVIDERS: PCP Family Medicine; Visit Provider Podiatrist Foot & Ankle Surgery | DX: M20.41 Other hammer toe(s) (acquired), right foot; M20.42 Other hammer toe(s) (acquired), left foot | CPT/HCPCS: 73630; 99203 ==

== ENCOUNTER → 2023-06-03 09:51 | Outpatient (BNVA) | payer MEDICARE, SELFPAY | PROVIDERS: PCP Family Medicine; Visit Provider Podiatrist Foot & Ankle Surgery | DX: M20.41 Other hammer toe(s) (acquired), right foot; M20.42 Other hammer toe(s) (acquired), left foot | CPT/HCPCS: 99213 ==

== ENCOUNTER → 2023-07-01 08:38 | Outpatient (BNVA) | payer MEDICARE, SELFPAY | PROVIDERS: PCP Family Medicine; Visit Provider Nurse Practitioner Family | DX: L21.8 Other seborrheic dermatitis (principal); I78.8 Other diseases of capillaries; L57.0 Actinic keratosis; I87.2 Venous insufficiency (chronic) (peripheral); L73.8 Other specified follicular disorders | CPT/HCPCS: 17004; 99204 ==

== ENCOUNTER → 2023-11-02 10:42 | Outpatient (BNVA) | payer MEDICARE, SELFPAY | PROVIDERS: PCP Family Medicine; Visit Provider Nurse Practitioner Family | DX: L21.8 Other seborrheic dermatitis (principal); L57.0 Actinic keratosis; I87.2 Venous insufficiency (chronic) (peripheral); L73.8 Other specified follicular disorders; L85.3 Xerosis cutis | CPT/HCPCS: 17000; 99214 ==

== ENCOUNTER → 2023-11-29 11:59 | Outpatient (BNVA) | payer MEDICARE, SELFPAY | PROVIDERS: PCP Family Medicine; Visit Provider Internal Medicine | DX: Z86.73 Personal history of transient ischemic attack (TIA), and cerebral infarction without residual deficits (principal); E78.5 Hyperlipidemia, unspecified; I10 Essential (primary) hypertension; I25.10 Atherosclerotic heart disease of native coronary artery without angina pectoris; Z87.891 Personal history of nicotine dependence | CPT/HCPCS: 99214 ==

== ENCOUNTER 2024-02-08 08:27 | Outpatient (CLI) | payer MEDICARE, SELFPAY ==
--- NOTE | 2024-02-08 09:08 | CTR_ITS ---
PROCEDURE INFORMATION: Exam: CT Abdomen And Pelvis With Contrast Exam date and time: 02/08/2024 10:37 AM Age: 78 years old Clinical indication: Condition or disease; Hernia; Without gangrene and without obstruction; Ventral; Prior surgery; Surgery date: 6+ months; Surgery type: Gb; Additional info: Ventral hernia without obstruction or gangrene TECHNIQUE: Imaging protocol: Computed tomography of the abdomen and pelvis with contrast. Radiation optimization: All CT scans at this facility use at least one of these dose optimization techniques: automated exposure control; mA and/or kV adjustment per patient size (includes targeted exams where dose is matched to clinical indication); or iterative reconstruction. Contrast material: OMNI 350; Contrast volume: 100 ml; Contrast route: INTRAVENOUS (IV); COMPARISON: CR XR chest 1V portable [id number] 08/23/2020 6:54 PM RADIATION DOSE METRICS: Total DLP (mGy-cm): 499.31 FINDINGS: Limitations: Streak artifact from bilateral hip arthroplasties limits assessment of structures in the pelvis. Lungs: 6 mm right lower lobe nodule on series 3, image 9. 5 mm nodule in the right lower lobe on image 3. Mild bibasilar atelectasis. Benign calcified granuloma in the left lung base. Coronary arteries: Coronary artery calcifications. Liver: Benign calcified punctate hepatic granulomas. Gallbladder and biliary ducts: Status post cholecystectomy. Prominent extrahepatic and intrahepatic bile ducts is likely related to reservoir effect from prior cholecystectomy. Pancreas: Mild fatty atrophy of the pancreas. No ductal dilatation. Spleen: Spleen is normal in size. Punctate splenic granulomas. Adrenal glands: Normal. No mass. Kidneys and ureters: Normal. No hydronephrosis. Stomach and bowel: Colonic diverticulosis without evidence of acute diverticulitis. Moderate colonic stool. No evidence of bowel obstruction. Areas of gastric wall thickening are likely exaggerated by underdistention. Appendix: No evidence of appendicitis. Intraperitoneal space: Unremarkable. No free air. No significant fluid collection. Vasculature: Extensive atherosclerotic calcifications of the abdominal aorta and its branch vessels. No aortic aneurysm. Lymph nodes: Unremarkable. No enlarged lymph nodes. Urinary bladder: Circumferential bladder wall thickening. Reproductive: Limited assessment of the prostate due to streak artifact. The prostate is moderately enlarged. Patient appears to be status post TURP. Bones/joints: Posterior instrumented fusion in the lumbosacral spine with multilevel degenerative changes. Diffuse osseous demineralization. Anterior wedging deformities at T10 and T12. Bilateral hip arthroplasties prior hardware appears intact within the field of view. Soft tissues: Diastasis recti. No definite ventral hernia. CT/CT abdomen pelvis w con* [id number] IMPRESSION: 1. Diastasis recti. No definite ventral hernia identified. 2. Colonic diverticulosis without evidence of acute diverticulitis. 3. Gastric wall thickening is likely exaggerated by underdistention, though gastritis is not excluded. 4. Status post cholecystectomy with prominence of the intrahepatic and extrahepatic bile ducts, likely related to reservoir effect. 5. Prostatomegaly with findings suggestive of prior TURP. 6. Diffuse urinary bladder wall thickening is likely related to chronic outlet obstruction. Superimposed cystitis not entirely excluded. 7. Mild anterior wedging deformities at T10 and T12 are age indeterminate but favored to be chronic. Correlate with physical exam findings. 8. Right lower lobe pulmonary nodules measuring up to 6 mm. For patients at low risk (minimal or absent history of smoking and of other known risk factors), recommend CT Chest at 6-12 months, then consider CT Chest at 18-24 months. For patients at high risk (history of smoking or of other known risk factors), recommend CT Chest at 6-12 months, then CT Chest at 18-24 months. (Reference: Mitzi) 9. Additional ancillary findings as above. REFERENCES: Mitzi Valdivia et al. Guidelines for Management of Incidental Pulmonary Nodules Detected on CT Images: From the Fleischner Society 2017. Radiology. 2017;284(1):228-243.
[2024-02-08 10:36] LABS: Blood Urea Nitrogen 12 mg/dL (8-23)
[2024-02-08] MEDS: iohexol 350 mg/mL 500 mL Btl (per mL) IV (10:45)
[2024-02-08] MEDS: iohexol 350 mg/mL 500 mL Btl (per mL) PO (10:46)
== END 2024-02-08 08:28 | disposition home or self-care (01) ==
LOC: RAD 08:28
PROVIDERS: Radiology Neuroradiology; PCP Family Medicine; Visit Provider Family Medicine
DX: R91.8 Other nonspecific abnormal finding of lung field (principal); J84.10 Pulmonary fibrosis, unspecified; K75.3 Granulomatous hepatitis, not elsewhere classified; D73.89 Other diseases of spleen; K57.90 Diverticulosis of intestine, part unspecified, without perforation or abscess without bleeding; I70.0 Atherosclerosis of aorta; M43.27 Fusion of spine, lumbosacral region; N32.89 Other specified disorders of bladder; N40.0 Benign prostatic hyperplasia without lower urinary tract symptoms; S22.070A Wedge compression fracture of T9-T10 vertebra, initial encounter for closed fracture; S22.080A Wedge compression fracture of T11-T12 vertebra, initial encounter for closed fracture; X58.XXXA Exposure to other specified factors, initial encounter; M62.00 Separation of muscle (nontraumatic), unspecified site; Z90.49 Acquired absence of other specified parts of digestive tract
CPT/HCPCS: 74177; 82565; 84520

== ENCOUNTER → 2024-03-05 08:41 | Outpatient (BNVA) | payer MEDICARE, SELFPAY | PROVIDERS: PCP Family Medicine; Visit Provider Nurse Practitioner Family | DX: L57.0 Actinic keratosis (principal); L73.8 Other specified follicular disorders; L85.3 Xerosis cutis; L57.8 Other skin changes due to chronic exposure to nonionizing radiation; L81.4 Other melanin hyperpigmentation | CPT/HCPCS: 17000; 99213 ==

== ENCOUNTER → 2024-07-06 10:01 | Outpatient (BNVA) | payer MEDICARE, SELFPAY | PROVIDERS: PCP Family Medicine; Visit Provider Nurse Practitioner Family | DX: S60.911A Unspecified superficial injury of right wrist, initial encounter (principal); X58.XXXA Exposure to other specified factors, initial encounter; L82.1 Other seborrheic keratosis; D22.5 Melanocytic nevi of trunk; L57.8 Other skin changes due to chronic exposure to nonionizing radiation; L81.4 Other melanin hyperpigmentation; I83.92 Asymptomatic varicose veins of left lower extremity; I87.2 Venous insufficiency (chronic) (peripheral); L82.0 Inflamed seborrheic keratosis; L29.89 Other pruritus; Z78.9 Other specified health status; R20.8 Other disturbances of skin sensation; L53.8 Other specified erythematous conditions; L57.0 Actinic keratosis | CPT/HCPCS: 17000; 17110; 99213 ==

== ENCOUNTER → 2024-08-28 12:36 | Outpatient (BNVA) | payer MEDICARE, SELFPAY | PROVIDERS: PCP Family Medicine; Visit Provider Internal Medicine | DX: I25.10 Atherosclerotic heart disease of native coronary artery without angina pectoris (principal); I10 Essential (primary) hypertension; E78.5 Hyperlipidemia, unspecified; Z79.01 Long term (current) use of anticoagulants; Z79.82 Long term (current) use of aspirin; Z86.73 Personal history of transient ischemic attack (TIA), and cerebral infarction without residual deficits | CPT/HCPCS: 99214 ==

== ENCOUNTER 2024-09-11 20:00 | Outpatient (CLI) | payer MEDICARE, SELFPAY | END 2024-09-11 20:01 | disposition home or self-care (01) | LOC: SLEEP 22:40 | PROVIDERS: PCP Family Medicine; Visit Provider Family Medicine | DX: G47.33 Obstructive sleep apnea (adult) (pediatric) (principal) | CPT/HCPCS: 95810; 99203 ==

== ENCOUNTER 2024-09-25 06:34 | Outpatient (CLI) | payer MEDICARE, SELFPAY ==
--- NOTE | 2024-09-25 08:00 | CT_ITS ---
WS: [id number] CT ABDOMEN PELVIS TECHNIQUE: Contrast-enhanced CT of the abdomen and pelvis with coronal and sagittal reformatted images. CLINICAL INFORMATION: epigastric pain COMPARISON: None. DLP: 539.[address] scans at [place] use at least one of these dose optimization techniques: automated exposure control; mA and/or kV adjustment per patient size (includes targeted exams where dose is matched to clinical indication); or iterative reconstruction. FINDINGS: Small fat-containing epigastric hernia with hernia mouth measuring 1.3 cm. No herniated bowel. Tiny fat-containing umbilical hernia. Diastases recti Fatty liver. Cholecystectomy. Lung bases are well aerated. Normal GE junction. Splenic granulomas. Adrenal glands are normal. Normal renal parenchymal enhancement. No hydronephrosis. Normal portal vein and splenic vein. Fatty atrophy of the pancreas. Splenic artery calcification. Normal caliber abdominal aorta. Urine distended bladder. Bilateral THAs degrade images in the pelvis. Pedicle screw fixation lumbar spine. Sigmoid diverticulosis. CT/CT abdomen pelvis w con* [id number] IMPRESSION: 1. Small fat-containing epigastric hernia with hernia mouth measuring 1.3 cm. 2. No herniated bowel. 3. Tiny fat-containing umbilical hernia. 4. Prior cholecystectomy.
[2024-09-25 08:33] LABS: Blood Urea Nitrogen 13 mg/dL (8-23)
[2024-09-25] MEDS: iohexol 350 mg/mL 500 mL Btl (per mL) IV (08:49)
[2024-09-25] MEDS: iohexol 350 mg/mL 500 mL Btl (per mL) PO (08:49)
== END 2024-09-25 06:35 | disposition home or self-care (01) ==
PROVIDERS: PCP Family Medicine; Visit Provider Surgery
DX: K43.9 Ventral hernia without obstruction or gangrene (principal); Z90.49 Acquired absence of other specified parts of digestive tract; M62.08 Separation of muscle (nontraumatic), other site; K76.0 Fatty (change of) liver, not elsewhere classified; D73.89 Other diseases of spleen; K86.89 Other specified diseases of pancreas; I70.8 Atherosclerosis of other arteries; Z96.643 Presence of artificial hip joint, bilateral; Z98.890 Other specified postprocedural states; K57.30 Diverticulosis of large intestine without perforation or abscess without bleeding
CPT/HCPCS: 74177; 82565; 84520

== ENCOUNTER → 2024-10-02 13:10 | Outpatient (BNVA) | payer MEDICARE, SELFPAY | PROVIDERS: PCP Family Medicine; Visit Provider Surgery | DX: Z09 Encounter for follow-up examination after completed treatment for conditions other than malignant neoplasm (principal) | CPT/HCPCS: 99214 ==

== ENCOUNTER 2024-11-14 20:00 | Outpatient (CLI) | payer MEDICARE, SELFPAY | END 2024-11-14 20:01 | disposition home or self-care (01) | LOC: SLEEP 23:37 | PROVIDERS: PCP Family Medicine; Visit Provider Internal Medicine Pulmonary Disease | DX: G47.33 Obstructive sleep apnea (adult) (pediatric) (principal) | CPT/HCPCS: 95811 ==

== ENCOUNTER → 2024-12-13 14:39 | Outpatient (BNVA) | payer MEDICARE, SELFPAY | PROVIDERS: PCP Family Medicine; Visit Provider Nurse Practitioner Family | DX: N64.53 Retraction of nipple (principal); L82.1 Other seborrheic keratosis; D22.5 Melanocytic nevi of trunk; L57.8 Other skin changes due to chronic exposure to nonionizing radiation; L81.4 Other melanin hyperpigmentation; D48.5 Neoplasm of uncertain behavior of skin; L57.0 Actinic keratosis | CPT/HCPCS: 11102; 17000; 99214 ==

== ENCOUNTER 2024-12-27 13:33 | Outpatient (CLI) | payer MEDICARE, SELFPAY ==
--- NOTE | 2024-12-27 | MM_ITS ---
WS: [id number] BILATERAL 3D TOMOSYNTHESIS DIGITAL DIAGNOSTIC MAMMOGRAPHY WITH CAD CLINICAL INFORMATION: RETRACTION OF NIPPLE HISTORY: LEFT nipple retraction COMPARISON: None. TECHNIQUE: Bilateral CC, MLO, and ML views. FINDINGS: Scattered fibroglandular densities bilaterally. No suspicious focal mass, asymmetry, calcifications, or architectural distortion. Nipples have a normal appearance on mammography. Ultrasound is pending. ULTRASOUND BREAST LEFT TECHNIQUE: Ultrasound left breast focused area of concern. CLINICAL INFORMATION: RETRACTION OF NIPPLE COMPARISON: None. FINDINGS: Ultrasound subareolar LEFT breast. Normal-appearing subareolar LEFT breast tissue. No cystic or solid lesions. No suspicious lesions to target for biopsy. Comparison RIGHT breast is normal in appearance. No suspicious findings. MM/MM diag BI tomosynthesis [id number] IMPRESSION: DENSITY: There are scattered areas of fibroglandular density. BI-RADS: 1 - Negative. FOLLOW UP: See Report
--- NOTE | 2024-12-27 13:42 | US_ITS ---
WS: [id number] BILATERAL 3D TOMOSYNTHESIS DIGITAL DIAGNOSTIC MAMMOGRAPHY WITH CAD CLINICAL INFORMATION: RETRACTION OF NIPPLE HISTORY: LEFT nipple retraction COMPARISON: None. TECHNIQUE: Bilateral CC, MLO, and ML views. FINDINGS: Scattered fibroglandular densities bilaterally. No suspicious focal mass, asymmetry, calcifications, or architectural distortion. Nipples have a normal appearance on mammography. Ultrasound is pending. ULTRASOUND BREAST LEFT TECHNIQUE: Ultrasound left breast focused area of concern. CLINICAL INFORMATION: RETRACTION OF NIPPLE COMPARISON: None. FINDINGS: Ultrasound subareolar LEFT breast. Normal-appearing subareolar LEFT breast tissue. No cystic or solid lesions. No suspicious lesions to target for biopsy. Comparison RIGHT breast is normal in appearance. No suspicious findings. US/US breast LT limited* [id number] IMPRESSION: DENSITY: There are scattered areas of fibroglandular density. BI-RADS: 1 - Negative. FOLLOW UP: See Report
== END 2024-12-27 13:34 | disposition home or self-care (01) ==
LOC: RAD 13:34
PROVIDERS: PCP Family Medicine; Visit Provider Nurse Practitioner Family
DX: N64.53 Retraction of nipple (principal); R92.323 Mammographic fibroglandular density, bilateral breasts
CPT/HCPCS: 76642; 77062; G0279

== ENCOUNTER → 2025-03-27 09:54 | Outpatient (BNVA) | payer MEDICARE, SELFPAY | PROVIDERS: PCP Family Medicine; Visit Provider Nurse Practitioner Family | DX: I25.10 Atherosclerotic heart disease of native coronary artery without angina pectoris (principal); G62.9 Polyneuropathy, unspecified; Z87.891 Personal history of nicotine dependence; I10 Essential (primary) hypertension; I25.2 Old myocardial infarction; Z95.5 Presence of coronary angioplasty implant and graft; Z86.73 Personal history of transient ischemic attack (TIA), and cerebral infarction without residual deficits | CPT/HCPCS: 99213 ==